=== PATIENT | male | born 1970 | race Asian ===

== ENCOUNTER 2023-10-31 17:56 | Emergency (ER) | payer BC ==
[~2023-10-31] VITALS: Ht 180.3 cm; Wt 79.5 kg
[2023-10-31 18:06] VITALS: TEMP 97.8
--- NOTE | 2023-10-31 18:11 | NUR ---
[facility] called #[phone]
--- NOTE | 2023-10-31 18:32 | NUR ---
NOT IN LOBBY
--- NOTE | 2023-10-31 19:10 | NUR ---
Spoke with triage nurse and charge nurse to clarify patient is in fast track.
--- NOTE | 2023-10-31 19:13 | NUR ---
CALLED [facility] REGARDING PATIENT TO REPORT THAT PATIENT IS IN FAST TRACK. PT STATES HE DOES NOT WANT CONTACT WITH AN OFFICER.
[2023-10-31] MEDS ORDERED: AMOX-117 PO (19:20)
[2023-10-31] MEDS ORDERED: HYDR-3965 PO (19:35)
[2023-10-31] MEDS: amox tr/potassium clavulanate 875/125mg TAB PO ONE (19:39)
[2023-10-31] MEDS: TETanus/Pertussis (Acell)/Diphther VAC/PF (Tdap-Adult) 0.5ml syringe IMVAC ONE (19:40)
[2023-10-31] MEDS: HYDROcodone/acetaminophen 5mg/325mg tablet PO ONE (19:41)
[2023-10-31 19:47] VITALS: BP 145/90; PULSE 86; RESP 16; O2SAT 96
== END 2023-10-31 19:52 | disposition home or self-care (01) ==
LOC: ER 17:57
DX: S30.0XXA Contusion of lower back and pelvis, initial encounter (principal); S00.83XA Contusion of other part of head, initial encounter; S61.251A Open bite of left index finger without damage to nail, initial encounter; Z88.2 Allergy status to sulfonamides; Z79.2 Long term (current) use of antibiotics; Y04.1XXA Assault by human bite, initial encounter; Y93.89 Activity, other specified; Y92.89 Other specified places as the place of occurrence of the external cause; Y99.8 Other external cause status
CPT/HCPCS: 90471; 90715; 99283